=== PATIENT | female | born 1990 | race Caucasian/White ===

== ENCOUNTER → 2021-05-13 09:00 | Outpatient (REF) | payer BC, SELFPAY | LOC: ANHLAB 09:00 | PROVIDERS: Visit Provider Nurse Practitioner | DX: C44.319 Basal cell carcinoma of skin of other parts of face (principal); C44.619 Basal cell carcinoma of skin of left upper limb, including shoulder | CPT/HCPCS: 88305; 88331 ==

== ENCOUNTER 2021-07-23 06:22 | Inpatient (IN) | payer BC, SELFPAY ==
[2021-07-23] VITALS (85 sets, daily range): BP systolic 91–134; BP diastolic 54–117; PULSE 65–111; RESP 16–18; TEMP 35.8–36.8; O2SAT 84–100; BMI 31.1
[2021-07-23 07:27] LABS: Basophils Percent Auto 0.3 % (0.2-1.2); Eosinophils Percent Auto 0.3 % (0-4.4); Hematocrit 34.7 % (37.0-47.0); Immature Granulocyte Absolute 0.06 K/mm3 (0.00-0.031); Immature Granulocyte Percent A 0.6 % (0-0.5); Lymphocytes Absolute Auto 1.81 K/mm3 (0.9-3.2); Lymphocytes Percent Auto 17.5 % (18.3-44.2); Mean Corpuscular HGB Conc 31.7 g/dl (32-36); Mean Corpuscular Hemoglobin 27.8 pg (26-34); Mean Corpuscular Volume 87.6 fl (80-100); Mean Platelet Volume 10.3 fl (7.4-10.4); Monocytes Absolute Auto 0.8 K/mm3 (0.1-0.6); Monocytes Percent Auto 7.4 % (2.6-8.5); Neutrophils Absolute Auto 7.7 K/mm3 (1.3-6.7); Neutrophils Percent Auto 73.9 % (45.5-73.1); Platelet Count Result 263 k/mm3 (150-375); Red Blood Count 3.96 M/mm3 (4.2-5.4); Red Cell Distribution Width 15.8 % (11.5-14.5); White Blood Count 10.4 K/mm3 (4.5-10.0)
[2021-07-23] MEDS: LACTATED RINGERS 1,000 ML 125 ML IV CONT (07:28)
[2021-07-23] MEDS: OXYTOCIN 30 UNITS/NS 500 ML 30 UNITS/500 ML BAG IV CONT (07:29)
--- NOTE | 2021-07-23 07:33 | WPDANESEPP ---
Anes - Eval Pre Procedure Procedure: labor epidural Date/Time: 07/23/21 07:33 Surgeon: fide Preop Diagnosis: pain during labor Pre Op Diagnosis: induction of labor Patient Data Age: 31 Gender: F Height: Weight: Allergies Allergy/AdvReac Type Severity Reaction Status Date / Time amoxicillin Allergy Unknown Hives Verified 05/20/21 09:45 Home Medications Medication Instructions Recorded Confirmed Type PNV cmb#95-ferrous fumarate-FA 1 tablet PO DAILY 06/20/21 06/20/21 History [] Laboratory Tests 07/23/21 07/23/21 07:15 07:15 WBC 10.4 K/mm3 H K/mm3 (4.5-10.0) RBC 3.96 M/mm3 L M/mm3 (4.2-5.4) Hgb 11.0 g/dL L g/dL (12.0-15.0) Hct 34.7 % L % (37.0-47.0) MCV 87.6 fl fl (80-100) MCH 27.8 pg pg (26-34) MCHC 31.7 g/dl L g/dl (32-36) RDW 15.8 % H % (11.5-14.5) Plt Count 263 k/mm3 k/mm3 (150-375) MPV 10.3 fl fl (7.4-10.4) Immature Gran % (Auto) 0.6 % H % (0-0.5) Neut % (Auto) 73.9 % H % (45.5-73.1) Lymph % (Auto) 17.5 % L % (18.3-44.2) [place] % (Auto) 7.4 % % (2.6-8.5) Eos % (Auto) 0.3 % % (0-4.4) Baso % (Auto) 0.3 % % (0.2-1.2) Lymph # (Auto) 1.81 K/mm3 K/mm3 (0.9-3.2) [place] # (Auto) 0.8 K/mm3 H K/mm3 (0.1-0.6) Eos # (Auto) 0.0 K/mm3 K/mm3 (0-0.3) Baso # (Auto) 0.0 K/mm3 K/mm3 (0.0-0.1) Abs Immat Gran (auto) 0.06 K/mm3 H K/mm3 (0.00-0.031) Absolute Neuts (auto) 7.7 K/mm3 H K/mm3 (1.3-6.7) Absolute Nucleated RBC 0.0 K/mm3 K/mm3 (0.0-0.012) Nucleated RBC % 0.0 % % (0.0-0.2) RPR Pending Patient hx anesthesia problems: none Family hx anesthesia problems: none [facility] Social History Social History (Updated 05/13/21 @ 09:00 by Helen Linder RN) Smoking status: Never smoker Alcohol intake: never Substance use: never Substance use type: does not use Gender identity (if verbalized by the patient): Female Spiritual care concerns: No Exam Day of Procedure 07/23/21 07:33
--- NOTE | 2021-07-23 07:40 | LDADM ---
This patient, Delicia Nicholson, was admitted to Labor/Delivery/Recovery 103 on 07/23/21 at 06:22. Plans for labor, pain management and were discussed with patient. Patient/family oriented to hospital policies and general routines including ID bracelet, bed and alarms, visiting hours, pain management, procedures, bathroom and other care routines, personal items, smoking policy, room service/diet and guest tray routines, security routines, and visiting hours. Patient/Family are encouraged to report perceived risks to care and to ask questions if they do not understand what they are told or what they should do. See OBIX for further documentation.
--- NOTE | 2021-07-23 08:40 | WPDOBADMIT ---
Obstetrics - Admit Note Admission Note: record reviewed. Additions to the history and/or subsequent changes in the physical findings follow. 31 y/o at 40 6/7 weeks here for induction of labor. GBS neg. Now comfortable with epidural. AVSS NST reactive TOCO: contractions every 2-4 min ABD soft, nontender, gravid, vertex EXT nontender Cervix 3-4/80/-2. AROM with meconium stained fluid. A: IUP at term with favorable cervix. P: Oxytocin. Anticipate . Peds aware of meconium.
--- NOTE | 2021-07-23 13:03 | PM.OBPRVD ---
OB - Delivery Note Procedure Delivery date: 07/23/21 Procedure: Induction of labor with Intrapartal events: None Induction method: AROM and per pitocin protocol Delivery augmentation: pitocin Delivery monitor: external FHT and external uterine Route of delivery: Laceration Description: Perineal - 2nd Degree Delivery repair: vicryl (3-0) Specimen: Yes (cord blood) Quantitative Blood Loss (ml): 95 Anesthesia type: Epidural Disposition: PACU Complications: None Narrative: 31 y/o at 40 6/7 weeks gestation who presented to the hospital for induction of labor. Oxytocin was administered intravenously. Amniotomy was performed with return of meconium-stained fluid. She received an epidural for pain control. Her labor progressed and her cervix dilated completely. She pushed with good effort and delivered the 's head to the perineum, followed by the body. The nose and mouth were bulb suctioned. After a delay, the cord was clamped and cut. The infant was handed off the field. Cord blood was collected. The placenta delivered spontaneously and was grossly normal in appearance. The usual 3 vessel cord was noted. A second degree midline perineal laceration was sustained. This was reapproximated using 3 0 Vicryl in the usual layered fashion. Excellent hemostasis resulted as did excellent reapproximation of the normal anatomy. Needle and instrument counts were correct. The patient was taken to recovery room in stable condition. The infant went to the nursery in stable condition. I was present and scrubbed for the entire delivery. [place] Baby Date of : 07/23/21 Time of : 12:37 Weeks of gestation at delivery: 40 Infant gender: Male Weight (pounds): 9 presentation: vertex position: Left Occiput Anterior Placenta delivery description: Spontaneous and Normal Configuration cord vessel description: 3 Vessels and Delayed Cord Clamping score one minute: 8 score five minutes: 9
--- NOTE | 2021-07-23 13:05 | PM.OBDSVD ---
DS: Admitting Diagnosis Admitting Diagnosis IUP at 40 6/7 weeks DS: Discharge Diagnosis Discharge Diagnosis (1) (normal spontaneous vaginal delivery): Code(s): O80 - Encounter for full-term uncomplicated delivery Status: Acute OB - DS: Summary OB Procedures : None OB Procedures Intrapartum: Spontaneous Vag Delivery OB Procedures: : None DS: Data Data Completed and Pending Labs on day of discharge: Labs from last 24 hours 07/23/21 07/23/21 07/23/21 07:15 07:15 07:15 WBC 10.4 H RBC 3.96 L Hgb 11.0 L Hct 34.7 L MCV 87.6 MCH 27.8 MCHC 31.7 L RDW 15.8 H Plt Count 263 MPV 10.3 Immature Gran % (Auto) 0.6 H Neut % (Auto) 73.9 H Lymph % (Auto) 17.5 L [place] % (Auto) 7.4 Eos % (Auto) 0.3 Baso % (Auto) 0.3 Lymph # (Auto) 1.81 [place] # (Auto) 0.8 H Eos # (Auto) 0.0 Baso # (Auto) 0.0 Abs Immat Gran (auto) 0.06 H Absolute Neuts (auto) 7.7 H Absolute Nucleated RBC 0.0 Nucleated RBC % 0.0 RPR Pending Blood Type A Positive Antibody Screen Negative Discharge Plan Discharge Attending physician on discharge: Lacho Vazquez Discharging Clinician: Lacho Vazquez Patient Disposition: Home, Self-Care Activity: pelvic rest Diet: regular Discharge Instructions: Call or return if temperature above 100.4? F, increased abdominal pain, increased vaginal bleeding or any new problems. Stand Alone Forms: General Discharge Information Follow-up/Referrals: Lacho Vazquez MD [Physician] - 6 Weeks Discharge Medications: New ibuprofen 600 mg tablet 600 mg PO Q6H PRN (Reason: cramps) Qty: 30 RF: 0 Niferex (Sumalate-Quatrefolic) 150 mg iron- 60 mg-1 mg tablet 1 tablet PO DAILY Qty: 30 RF: 0 No Action PNV cmb#95-ferrous fumarate-FA [] 28 mg iron- 800 mcg Tablet 1 tablet PO DAILY RF: 0 ergocalciferol (vitamin D2) 400 unit Capsule 400 unit PO DAILY RF: 0 Date of admission: 07/23/21 06:22 Primary Care Provider: PHYSICIAN,FOOD TECHNICIAN Admitting Provider: Lacho Vazquez Attending physician on admission: Lacho Vazquez Condition: Stable
[2021-07-23] MEDS: OXYTOCIN 30 UNITS/NS 500 ML 30 UNITS/500 ML BAG 125 UNITS IV CONT (13:17)
[2021-07-23] MEDS: BENZOCAINE 20% AER SPR (*SP) 56 GM CAN 1 SPRAY TOPICAL (15:21)
[2021-07-23] MEDS: WITCH HAZEL 40 PADS 1 PAD TOPICAL (15:21)
--- NOTE | 2021-07-23 16:16 | OBPPTRN ---
Patient transferred to post room # 280 via wheelchair accompanied by spouse. Support person present. Oriented to unit, room, information board, rooming in, admission packet and security measures. PT and spouse both recipients of instructions and education. PT has no barriers to learning at this time and education and instructions will be provided by one to one discussion, mom baby care guide and demonstration. Patient verbalizes understanding.
[2021-07-23] MEDS: ACETAMINOPHEN 325 MG TABLET 650 MG PO (17:19)
[2021-07-23] MEDS: IBUPROFEN 600 MG TABLET PO (17:20)
[2021-07-23] MEDS: DOCUSATE SODIUM 100 MG CAPSULE PO (17:21)
[2021-07-23] MEDS: LANOLIN (LANSINOH) 7.5 GM CREAM 1 APPLIC TOPICAL (17:21)
[2021-07-24] VITALS: BP 113/72; PULSE 87; RESP 16; TEMP 36.8; O2SAT 99
[2021-07-24] MEDS: IBUPROFEN 600 MG TABLET PO ×3 (03:50→16:30)
[2021-07-24 04:00] VITALS: BP 114/80; PULSE 86; RESP 16; TEMP 36.4; O2SAT 98
[2021-07-24 04:53] LABS: Hematocrit 30.4 % (37.0-47.0); Hemoglobin 9.6 g/dL (12.0-15.0)
--- NOTE | 2021-07-24 08:00 | PC.NURSE ---
Pt introductions made and plan of care discussed per post , pain management, breast feeding, daily care activities. PT and spouse both recipients of instructions and education. PT has no barriers to learning at this time and education and instructions will be provided by one to one discussion, mom baby care guide and demonstration. Patient verbalizes understanding.
--- NOTE | 2021-07-24 08:11 | PM.OBPNVD ---
OB - PN: Subj Subjective Date/time seen: 07/24/21 08:11 Narrative: Pain OK. Would like circumcision for son. OB - PN: Obj Data Labs CBC & Chem 7: 07/24/21 03:46 Labs: Laboratory Results - last 24 hr 07/23/21 07/24/21 07:15 03:46 Hgb 9.6 L Hct 30.4 L Blood Type A Positive Antibody Screen Negative OB - PN A/P Plan Comments: A: PPD#1, doing well. P: Routine care. Exam Psych: Other: AVSS ABD soft, nontender, fundus firm EXT nontender
[2021-07-24 10:00] LABS: Rapid Plasma Reagin Non-Reactive (NonReactive)
[2021-07-24 10:30] VITALS: BP 122/83; PULSE 87; RESP 18; TEMP 36.8; O2SAT 99
[2021-07-24] MEDS: POLYSACCHARIDE IRON COMPLEX 150 MG CAPSULE PO ×2 (10:34→16:29)
--- NOTE | 2021-07-24 12:33 | WPDANLDPN2 ---
Anes-Prog Note L&D Date/Time: 07/24/21 12:33 Comfortable throughout: labor and delivery Neuraxial method: epidural Epidural/Spinal procedure site: clean & non-tender Neuro status: Neuro function grossly intact. Cardiovascular status: normal Respiratory status: normal Airway patency: baseline Mental status: baseline Post-Op hydration status: normal Vital Signs: Last Vital Signs Temp 36.4 C 07/24/21 04:00 Pulse 86 07/24/21 04:00 Resp 16 07/24/21 04:00 BP 114/80 07/24/21 04:00 Pulse Ox 98 07/24/21 04:00 Pain score (VAS): 12/02 I/O: Intake & Output 07/23/21 07/24/21 07/24/21 23:59 07:59 15:59 Intake Total 500 120 Balance 500 120 Post-procedural complaints: none Patient feedback: Patient satisfied with anesthetic care.
[2021-07-24 13:00] VITALS: BP 115/76; PULSE 89; RESP 18; TEMP 36.8; O2SAT 100
[2021-07-24] MEDS: DOCUSATE SODIUM 100 MG CAPSULE PO (16:29)
[2021-07-24] MEDS: ACETAMINOPHEN 325 MG TABLET 650 MG PO (16:29)
[2021-07-24 20:00] VITALS: BP 118/83; PULSE 86; RESP 16; TEMP 36.8; O2SAT 98
[2021-07-25] MEDS: WITCH HAZEL 40 PADS 1 PAD TOPICAL (06:38)
[2021-07-25] MEDS: LANOLIN (LANSINOH) 7.5 GM CREAM 1 APPLIC TOPICAL (06:38)
[2021-07-25] MEDS: IBUPROFEN 600 MG TABLET PO (06:38)
[2021-07-25] MEDS: BENZOCAINE 20% AER SPR (*SP) 56 GM CAN 1 SPRAY TOPICAL (06:38)
[2021-07-25] MEDS: MULTIVIT/MIN/PREN/FOL AC/IRON TABLET 1 TAB PO (06:39)
[2021-07-25] MEDS: DOCUSATE SODIUM 100 MG CAPSULE PO (06:39)
[2021-07-25] MEDS: POLYSACCHARIDE IRON COMPLEX 150 MG CAPSULE PO (06:39)
[2021-07-25 08:00] VITALS: BP 112/82; PULSE 78; RESP 18; TEMP 36.5
--- NOTE | 2021-07-25 09:00 | PC.NURSE ---
Patient was given the opportunity to view the discharge video Mother & Baby Care, The First Two Weeks and to ask questions. Patient declined viewing the video and has been given the mother/baby guide for home reference.
--- NOTE | 2021-07-25 09:05 | PM.OBPNVD ---
OB - PN: Subj Subjective Date/time seen: 07/25/21 09:05 Narrative: Pain OK. Would like to go home. OB - PN: Obj Data Labs CBC & Chem 7: 07/24/21 03:46 Labs: Laboratory Results - last 24 hr 07/23/21 07:15 RPR Non-reactive OB - PN A/P Plan Comments: A: PPD#2, doing well. P: Home to f/u 6 weeks. Exam Psych: Other: AVSS ABD soft, nontender, fundus firm EXT nontender
--- NOTE | 2021-07-25 09:15 | PC.NURSE ---
Mother called out for assist with feeding, due to pain and blister to left nipple. is able to freely thrust tongue past gum ridge and flange both lips. Reviewed feeding cues, frequencies, duration of feedings, feeding elimination flow sheet, and signs of adequate intake. Demonstrated stimulation techniques to wake for feeding. Assisted with infant to breast. Reviewed positioning/alignment in cross cradle, holding breast in ?U? hold and guided asymmetrical latch on. Discussed rational for each. Mother attempts with head turned to the side, advised to straighten so mouth in straight in front of nipple Infant able to latch correctly. Reviewed signs of a correct latch, effective nursing and suck swallow ratio. Infant nursed eagerly, with steady draws and frequent swallowing noted. Reviewed the difference of effective vs ineffective nursing. Suggested mother stimulate while feeding to increase stimulation, increase intake and to assist with maintaining deep latch. Infant would slip to shallow latch, mother reports tenderness. Mother would release breast hold. Demonstrated how to adjust latch more deeply while feeding. Mother reports she can feel change in latch and has no tenderness. Advised to hold breast during entire feeding to assist with maintaining latch for the next several days. Nipple care reviewed of lanolin after feedings, warm compresses as needed. Mother is planning discharge today. Mother is able to independently latch with appropriate positioning/alignment. She is feeding as required and waking infant to feed if needed. Infant has had at least 8 effective feedings in the past 24 hours, and is currently meeting outcomes for weight, output, jaundice and feeding frequencies. Mother states she feels confident to continue effective at home. Reviewed transition to breast milk, signs of adequate intake, and engorgement/relief. Instructed to call ICP if intake/output less than required. Reviewed regular medications mother is taking. Information provided per Yenny. Reviewed community resources on the [employer] website and in the Mom/Baby guide. Information on outpatient services provided. Mother has no further questions at this time.
--- NOTE | 2021-07-25 10:12 | PC.NURSE ---
Self care and infant care discharge instructions given including follow up visit date and time. Pt. verbalized understanding. No questions voiced. FOB at side.
[2021-07-26 08:29] VITALS: BP 123/72; PULSE 85; RESP 20; TEMP 37.1; O2SAT 100
== END 2021-07-25 11:20 | disposition home or self-care (01) | DRG 807 ==
LOC: ANHLDR 13:06 → ANHOB2 16:36
PROVIDERS: Admitting Provider Obstetrics & Gynecology; Visit Provider Obstetrics & Gynecology
DX: O77.0 Labor and delivery complicated by meconium in amniotic fluid (principal); Z37.0 Single live birth; O70.1 Second degree perineal laceration during delivery; O76 Abnormality in fetal heart rate and rhythm complicating labor and delivery; Z3A.40 40 weeks gestation of pregnancy
CPT/HCPCS: 36415; 85014; 85018; 85025; 86592; 86850; 86900; 86901; A9270; J2590; J2795; J7120

== ENCOUNTER 2024-05-29 07:59 | Inpatient (IN) | payer BC, SELFPAY ==
[2024-05-29] VITALS (107 sets, daily range): BP systolic 105–150; BP diastolic 57–110; PULSE 73–128; RESP 16; TEMP 36.1–37.2; O2SAT 91–100; BMI 31.7
--- NOTE | 2024-05-29 07:59 | LDADM ---
This patient, Delicia Nicholson, was admitted to Labor/Delivery/Recovery 107 on 05/29/24 at 07:59. Plans for labor, pain management and were discussed with patient. Patient/family oriented to hospital policies and general routines including ID bracelet, bed and alarms, visiting hours, pain management, procedures, bathroom and other care routines, personal items, smoking policy, room service/diet and guest tray routines, security routines, and visiting hours. Patient/Family are encouraged to report perceived risks to care and to ask questions if they do not understand what they are told or what they should do. See OBIX for further documentation.
[2024-05-29] MEDS: LACTATED RINGERS 1,000 ML 125 ML IV CONT ×2 (08:32→10:09)
[2024-05-29 08:33] LABS: Basophils Percent Auto 0.3 % (0.2-1.2); Eosinophils Percent Auto 0.2 % (0-4.4); Hematocrit 36.7 % (37.0-47.0); Hemoglobin 12.1 g/dL (12.0-15.0); Immature Granulocyte Absolute 0.06 K/mm3 (0.00-0.031); Immature Granulocyte Percent A 0.6 % (0-0.5); Lymphocytes Absolute Auto 1.35 K/mm3 (0.9-3.2); Lymphocytes Percent Auto 13.3 % (18.3-44.2); Mean Corpuscular Volume 90.8 fl (80-100); Mean Platelet Volume 10.3 fl (7.4-10.4); Monocytes Absolute Auto 0.6 K/mm3 (0.1-0.6); Monocytes Percent Auto 5.4 % (2.6-8.5); Neutrophils Absolute Auto 8.1 K/mm3 (1.3-6.7); Neutrophils Percent Auto 80.2 % (45.5-73.1); Platelet Count Result 237 k/mm3 (150-375); Red Blood Count 4.04 M/mm3 (4.2-5.4); Red Cell Distribution Width 14.8 % (11.5-14.5); White Blood Count 10.1 K/mm3 (4.5-10.0)
--- NOTE | 2024-05-29 09:23 | P.PNAN_ITS ---
Anes - Eval Pre Procedure Procedure: labor epidural Date/Time: 05/29/24 09:23 Surgeon: Taylor Preop Diagnosis: Pain during labor Pre Op Diagnosis: labor Patient Data Age: 33 Gender: F Height: 1.7 m Weight: 92 kg Last Vital Signs Temp 36.1 C L 05/29/24 09:03 Pulse 91 05/29/24 09:16 BP 146/91 H 05/29/24 09:16 Allergies Allergy/AdvReac Type Severity Reaction Status Date / Time amoxicillin Allergy Unknown Hives Verified 05/03/24 13:25 Home Medications Medication Instructions Recorded Confirmed Type ergocalciferol (vitamin D2) 400 5,000 unit PO DAILY 07/23/21 05/03/24 History unit capsule ferrous sulfate 325 mg (65 mg 325 mg PO DAILY 05/03/24 05/03/24 History iron) tablet vits no.126-ferrous fum 1 tablet PO DAILY 05/03/24 05/03/24 History 28 mg iron-folic acid 800 mcg tablet (Classic ) Laboratory Tests 05/29/24 08:26 WBC 10.1 H K/mm3 (4.5-10.0) RBC 4.04 L M/mm3 (4.2-5.4) Hgb 12.1 g/dL (12.0-15.0) Hct 36.7 L % (37.0-47.0) MCV 90.8 fl (80-100) MCH 30.0 pg (26-34) MCHC 33.0 g/dl (32-36) RDW 14.8 H % (11.5-14.5) Plt Count 237 k/mm3 (150-375) MPV 10.3 fl (7.4-10.4) Immature Gran % (Auto) 0.6 H % (0-0.5) Neut % (Auto) 80.2 H % (45.5-73.1) Lymph % (Auto) 13.3 L % (18.3-44.2) [place] % (Auto) 5.4 % (2.6-8.5) Eos % (Auto) 0.2 % (0-4.4) Baso % (Auto) 0.3 % (0.2-1.2) Lymph # (Auto) 1.35 K/mm3 (0.9-3.2) [place] # (Auto) 0.6 K/mm3 (0.1-0.6) Eos # (Auto) 0.0 K/mm3 (0-0.3) Baso # (Auto) 0.0 K/mm3 (0.0-0.1) Abs Immat Gran (auto) 0.06 H K/mm3 (0.00-0.031) Absolute Neuts (auto) 8.1 H K/mm3 (1.3-6.7) Absolute Nucleated RBC 0.000 K/mm3 (0.0-0.012) Nucleated RBC % 0.0 % (0.0-0.2) RPR Pending HIV 1&2 Ab/P24 Ag 4thGn Pending Blood Type A Positive Antibody Screen Negative Patient hx anesthesia problems: none Family hx anesthesia problems: none Results Review: All pre-operative results and documents have been reviewed as part of the pre- operative evaluation. [facility] Family History Family History Other No pertinent family history Social History Social History Smoking status: Never smoker Alcohol intake: never Substance use: never Substance use type: does not use Gender identity (if verbalized by the patient): Female Spiritual care concerns: No Exam Day of Procedure 05/29/24 09:23 Patient weight: overweight Heart: regular rate and rhythm Lungs: normal air movement Airway: Mallampati scale class II Neurological: alert and oriente
[2024-05-29 09:28] LABS: HIV 1/2 Ab P24 Ag Result Negative (Negative)
--- NOTE | 2024-05-29 12:43 | PM.IMHP ---
H&P: HPI History of Present Illness Date/Time: 05/29/24 12:43 Labor at term Chief Complaint: this is a 33 year 5 para 2021 his last menstrual periods 08/25/2023, EDC is 05/31/2024, confirmed by ultrasound presents at 39 and half weeks gestation in active labor. Her has been uncomplicated with a normal group negative group B strep test and normal diabetic test. Narrative: Patient is admitted in active labor. She spontaneously ruptured within the last 1/2hour [facility] Family History Family History Other No pertinent family history Social History Social History Smoking status: Never smoker Alcohol intake: never Substance use: never Substance use type: does not use Gender identity (if verbalized by the patient): Female Spiritual care concerns: No Meds Home Medications and Allergies Home Medications Medication Instructions Recorded Confirmed Type ergocalciferol (vitamin D2) 400 5,000 unit PO DAILY 07/23/21 05/03/24 History unit capsule ferrous sulfate 325 mg (65 mg 325 mg PO DAILY 05/03/24 05/03/24 History iron) tablet vits no.126-ferrous fum 1 tablet PO DAILY 05/03/24 05/03/24 History 28 mg iron-folic acid 800 mcg tablet (Classic ) Allergies Allergy/AdvReac Type Severity Reaction Status Date / Time amoxicillin Allergy Unknown Hives Verified 05/03/24 13:25 Vital Signs Vital Signs - 24 hr 05/29/24 08:31 05/29/24 08:46 05/29/24 09:01 Temperature Pulse Rate 111 H 102 H 100 Blood Pressure 145/92 H 140/91 H 150/96 H Pulse Oximetry 05/29/24 09:03 05/29/24 09:16 05/29/24 09:30 Temperature 97 F L Pulse Rate 91 Blood Pressure 146/91 H Pulse Oximetry 100 05/29/24 09:31 05/29/24 09:35 05/29/24 09:40 Temperature Pulse Rate 100 Blood Pressure 143/90 H Pulse Oximetry 100 100 05/29/24 09:45 05/29/24 09:57 05/29/24 10:01 Temperature Pulse Rate 98 Blood Pressure 138/96 H Pulse Oximetry 99 99 05/29/24 10:02 05/29/24 10:07 05/29/24 10:08 Temperature Pulse Rate 97 79 Blood Pressure 126/74 130/110 H Pulse Oximetry 99 100 05/29/24 10:10 05/29/24 10:12 05/29/24 10:13 Temperature Pulse Rate 96 92 Blood Pressure 123/76 126/70 Pulse Oximetry 100 05/29/24 10:16 05/29/24 10:17 05/29/24 10:19 Temperature Pulse Rate 98 100 Blood Pressure 126/75 123/87 Pulse Oximetry 100 05/29/24 10:18 05/29/24 10:22 05/29/24 10:25 Temperature 97.9 F Pulse Rate 98 97 Blood Pressure 127/78 123/76 Pulse Oximetry 100 05/29/24 10:27 05/29/24 10:28 05/29/24 10:31 Temperature Pulse Rate 88 87 Blood Pressure 130/81 129/77 Pulse Oximetry 100 05/29/24 10:32 05/29/24 10:34 05/29/24 10:37 Temperature Pulse Rate 108 H 103 H Blood Pressure 125/78 129/72 Pulse Oximetry 100 100 05/29/24 10:40 05/29/24 10:42 05/29/24 10:43 Temperature Pulse Rate 96 94 Blood Pressure 131/76 119/75 Pulse Oximetry 100 05/29/24 10:46 05/29/24 10:47 05/29/24 10:49 Temperature Pulse Rate 90 94 Blood Pressure 128/85 126/78 Pulse Oximetry 100 05/29/24 10:52 05/29/24 10:55 05/29/24 10:57 Temperature Pulse Rate 96 95 Blood Pressure 127/74 135/83 Pulse Oximetry 100 100 05/29/24 10:59 05/29/24 11:02 05/29/24 11:07 Temperature Pulse Rate 101 H Blood Pressure 112/72 Pulse Oximetry 99 99 05/29/24 11:12 05/29/24 11:16 05/29/24 11:17 Temperature Pulse Rate 89 Blood Pressure 124/80 Pulse Oximetry 99 100 05/29/24 11:22 05/29/24 11:27 05/29/24 11:31 Temperature Pulse Rate 94 Blood Pressure 126/82 Pulse Oximetry 99 100 05/29/24 11:32 05/29/24 11:37 05/29/24 11:42 Temperature Pulse Rate Blood Pressure Pulse Oximetry 99 100 99 05/29/24 11:46 05/29/24 11:47 05/29/24 11:52 [place]
[2024-05-29] MEDS: OXYTOCIN 30 UNITS/NS 500 ML 30 UNITS/500 ML BAG 999 UNITS IV CONT (14:14)
--- NOTE | 2024-05-29 14:24 | P.PCNOB_ITS ---
OB - Vaginal Delivery Note Procedure Delivery date: 05/29/24 Induction method: None Delivery monitor: External FHT and External Uterine Route of delivery: Episiotomy description: None Laceration Description: Perineal - 1st Degree Delivery repair: vicryl Specimen: No Quantitative Blood Loss (ml): 61 Anesthesia type: Epidural Disposition: Floor Complications: No immediate complications [place] Baby Date of : 05/29/24 Time of : 14:09 Weeks of gestation at delivery: 39 Infant gender: Female Weight (pounds): 8 Weight (ounces): 8 presentation: vertex position: Right Occiput Anterior Placenta delivery description: Spontaneous Cord Vessel Description: 3 Vessels, Nuchal Cord, Loose and Reduced score one minute: 6 score five minutes: 9
[2024-05-29] MEDS: OXYTOCIN 30 UNITS/NS 500 ML 30 UNITS/500 ML BAG 125 UNITS IV CONT (14:47)
[2024-05-29] MEDS: BENZOCAINE 20% AER SPR (*SP) 56 GM CAN 1 SPRAY TOPICAL (17:00)
[2024-05-29] MEDS: WITCH HAZEL 40 PADS 1 PAD TOPICAL (17:00)
[2024-05-29] MEDS: IBUPROFEN 600 MG TABLET PO (17:00)
--- NOTE | 2024-05-29 22:38 | PC.NURSE ---
At initial assessment, mom requested that she only would like to be interrupted when she calls out. States she was exhausted when she had her last baby here RN stated that she will need to do her assessments before midnight and 4am. Will need to round on patient every 2 hours, but will try to cluster care. Patient verbalizes understanding.
[2024-05-30] VITALS: BP 124/85; PULSE 92; RESP 16; TEMP 36.6; O2SAT 98
[2024-05-30] MEDS: IBUPROFEN 600 MG TABLET PO ×4 (00:05→21:06)
[2024-05-30 04:31] LABS: Hematocrit 33.4 % (37.0-47.0); Hemoglobin 10.9 g/dL (12.0-15.0)
--- NOTE | 2024-05-30 05:51 | OBPPTRN ---
Patient transferred to post room #288 via ( wheelchair ). Support person present. Oriented to unit, room, information board, rooming in, admission packet and security measures. Patient verbalizes understanding.
[2024-05-30] MEDS: DOCUSATE SODIUM 100 MG CAPSULE PO (07:59)
[2024-05-30 08:00] VITALS: BP 113/94; PULSE 90; RESP 16; TEMP 36.9; O2SAT 100
[2024-05-30] MEDS: BENZOCAINE 20% AER SPR (*SP) 56 GM CAN 1 SPRAY TOPICAL (08:06)
[2024-05-30] MEDS: WITCH HAZEL 40 PADS 1 PAD TOPICAL (08:06)
--- NOTE | 2024-05-30 13:11 | PM.OBPNVD ---
OB - PN: Subj Subjective Date/time seen: 05/30/24 13:11 Narrative: Pain OK. OB - PN: Obj Data Labs 05/30/24 03:55 Labs: Laboratory Results - last 24 hr 05/30/24 03:55 Hgb 10.9 L Hct 33.4 L OB - PN A/P Plan Comments: A: PPD#1, doing well. P: Routine care. Exam Psych: Other: AVSS ABD soft, nontender, fundus firm EXT nontender
--- NOTE | 2024-05-30 14:44 | PC.NURSE ---
1047. Consulted with patient to assess needs related to . Discussed with mother her successes, concerns and any questions she has. Mother explained she BF her first two babies successfully. Mom states she last fed infant at 0600, and has some pain on her L breast when she feeds. We reviewed working with the infant, supporting breast, protecting her nipples with an optimal deep latch, good positioning, and good hand washing. Encouraged understanding the benefits of skin to skin, responding to feeding cues, frequencies of feeding 8-12 times in 24 hours (approximately 2-3 hours), duration of feedings, milk production, intake/output feeding sheet and signs of adequate intake encouraging swallowing at the breast. Reviewed positioning and alignment, supporting breast, off-centered (asymmetrical latch) and leading with the chin with big, open, wide gape. latched optimally to the [right] breast in [cross cradle] position. Education given to the mother of how to visualize the suckling (with good rocking jaw motion) swallows (dropping of the lower jaw) and how to listen for drinking at the breast (the ka sound). The infant was [able] to maintain latch without discomfort to mother. Nipple care reviewed with optimal latch, good positioning and using clean hands when touching her breast. Resources used to facilitate learning were used from the [visual handouts/mom and baby guide]. Mother voiced understanding of the education shared. Nipple shield provided to mother due to mother's request & pain on L breast due to blister. Reviewed good handwashing, cleaning the nipple shield and the appropriate way to apply and use as a tool. Mother will try to use on L side to let blister heal and work on weaning baby off shield when she feels appropriate. Discussed with mom the nipple shield precautions, possible complications associated with the risks and benefits. Reviewed practicing with a nipple shield, then without and how to protect the milk supply and production. Mom and baby guide referred to as a resource for outpatient services, community resources and when to call a provider. Mom voiced understanding of the importance of hand expression, nipple stimulation and initiating a pumping schedule if infant continues to nurse with the shield. Reported to the Primary RN..
--- NOTE | 2024-05-30 14:50 | WPDANLDPN2 ---
Anes-Prog Note L&D Date/Time: 05/30/24 14:50 Comfortable throughout: labor and delivery Neuraxial method: epidural Epidural/Spinal procedure site: tender Neuro status: Neuro function grossly intact. Cardiovascular status: normal Respiratory status: normal Airway patency: baseline Mental status: baseline Post-Op hydration status: normal Vital Signs: Last Vital Signs Temp 36.9 C 05/30/24 08:00 Pulse 90 05/30/24 08:00 Resp 16 05/30/24 08:00 BP 113/94 H 05/30/24 08:00 Pulse Ox 100 05/30/24 08:00 O2 Del Method Room Air 05/29/24 19:31 Pain score (VAS): 3/10 I/O: Intake & Output 05/29/24 05/30/24 05/30/24 23:59 07:59 15:59 Intake Total 240 Output Total 300 Balance -300 240 Post-procedural complaints: none Patient feedback: Patient satisfied with anesthetic care.
[2024-05-30 18:55] VITALS: BP 135/70; PULSE 84; RESP 16; TEMP 37; O2SAT 99
[2024-05-30 19:09] LABS: Rapid Plasma Reagin Non-Reactive (NonReactive)
[2024-05-31] MEDS: IBUPROFEN 600 MG TABLET PO ×2 (04:36→10:45)
--- NOTE | 2024-05-31 08:49 | PM.OBPNVD ---
OB - PN: Subj Subjective Date/time seen: 05/31/24 08:49 Narrative: Pain OK. Would like to go home. OB - PN: Obj Data Labs 05/30/24 03:55 Labs: Laboratory Results - last 24 hr 05/29/24 08:26 RPR Non-reactive OB - PN A/P Plan day: 2 Comments: A: PPD#2, doing well. P: Home to f/u 6 weeks. Exam Psych: Other: AVSS ABD soft, nontender, fundus firm EXT nontender
--- NOTE | 2024-05-31 08:50 | PM.OBDSVD ---
DS: Admitting Diagnosis Discharge Date 05/31/24 Admitting Diagnosis IUP at term Labor DS: Discharge Diagnosis Discharge Diagnosis (1) (normal spontaneous vaginal delivery): Code(s): O80 - Encounter for full-term uncomplicated delivery Status: Acute OB - DS: Summary OB Procedures : None OB Procedures Intrapartum: Spontaneous Vag Delivery OB Procedures: : None Peripartum Data Laceration Description: Perineal - 1st Degree Episiotomy description: None Time Spent with Patient Time attestation: Total time spent providing and/or coordinating discharge services: DS: Data Data Completed and Pending Labs on day of discharge: Labs from last 24 hours 05/29/24 08:26 RPR Non-reactive Discharge Plan Discharge Attending physician on discharge: Lacho Vazquez Discharging Clinician: Lacho Vazquez Patient Disposition: Home, Self-Care Activity: pelvic rest Diet: regular Discharge Instructions: Call or return if temperature above 100.4? F, increased abdominal pain, increased vaginal bleeding or any new problems. Stand Alone Forms: General Discharge Information Follow-up/Referrals: Lacho Vazquez MD [Physician] - 6 Weeks Discharge Medications: New ibuprofen 600 mg tablet 600 mg PO Q6H PRN (Reason: cramps) Qty: 30 0RF Continued ergocalciferol (vitamin D2) 400 unit Capsule 5,000 unit PO DAILY Classic 28 mg iron- 800 mcg Tablet 1 tablet PO DAILY ferrous sulfate 325 mg (65 mg iron) Tablet 325 mg PO DAILY Date of admission: 05/29/24 07:59 Primary Care Provider: UNKNOWN,DOCTOR Admitting Provider: Lacho Vazquez Attending physician on admission: Lacho Vazquez Condition: Stable
[2024-05-31 09:00] VITALS: BP 120/56; PULSE 85; RESP 18; TEMP 36.5; O2SAT 100
[2024-05-31] MEDS: DOCUSATE SODIUM 100 MG CAPSULE PO (09:31)
--- NOTE | 2024-05-31 11:00 | PC.NURSE ---
0900. Consulted with mother concerning needs and she shared her ability to independently latch infant optimally without pain. Mother is feeding appropriately for growth of infant and understands stimulating to eat if needed. has had appropriate feedings in the last 24 hours meets the outcomes for weight, output, blood sugar and jaundice at this time. Reinforced understanding of milk production, transition of milk, signs of adequate intake, transition of stool, prevention/relief of engorgement, plugged ducts, mastitis, responsive watching for feeding cues, the different methods of stimulating to breastfeed 1-3 hours after the start of the last feeding, community resources, and when to call a provider using the resource of the feeding sheet along with the mom and baby guide. Mother voiced understanding of the information shared, is confident to continue effectively her at home, when to call for assistance, denies any additional assistance or education at this time. Reported to the Primary RN.
--- NOTE | 2024-05-31 11:16 | PC.NURSE ---
Patient viewed the discharge video Mother & Baby Care, The First Two Weeks . Patient was given the opportunity and encouraged to ask questions. Patient verbalized understanding of information shared and has been given the mother/baby guide for home reference.
[2024-06-01 09:25] VITALS: BP 132/83; PULSE 88; RESP 18; TEMP 36.8; O2SAT 98
== END 2024-05-31 12:05 | disposition home or self-care (01) | DRG 807 ==
LOC: ANHLDR 08:19 → ANHOB2 18:17
PROVIDERS: Admitting Provider Obstetrics & Gynecology; Visit Provider Obstetrics & Gynecology
DX: O69.81X0 Labor and delivery complicated by cord around neck, without compression, not applicable or unspecified (principal); Z37.0 Single live birth; O70.0 First degree perineal laceration during delivery; Z3A.39 39 weeks gestation of pregnancy
CPT/HCPCS: 36415; 85014; 85018; 85025; 86592; 86703; 86850; 86900; 86901; A9270; G0432; J2590; J2795; J7120